=== PATIENT | female | born 1995 | race Caucasian/White ===

== ENCOUNTER 2021-09-05 03:40 | Emergency (ER) | payer OTHER ==
[~2021-09-05] VITALS: Ht 154.9 cm; Wt 65.8 kg
--- NOTE | 2021-09-05 03:46 | NUR ---
JOSE BRADLEY BLS TO ER BED 11 VIA [facility].
[2021-09-05 03:48] VITALS: BP 125/78
--- NOTE | 2021-09-05 04:08 | NUR ---
PT'S ARRIVED TEARY, TACHYPNEIC, AND VERY EMOTIONAL. PT'S REFUSED TO SEE FAMILY OUTSIDE WAITING IN THE WAITING AREA. PT PLACED ON MONITOR, VSS. BED LOCK AND LOW, SIDE RAILS UP, CALL LIGHT WITHIN REACH. ASPIRATION PRECAUTIONS OBSERVED: HOB IS OVER 30 DEGREES AND SIDELYING POSITION. WILL CONTINUE TO MONITOR.
--- NOTE | 2021-09-05 04:20 | NUR ---
PT'S FATHER, JONATAN, AT BEDSIDE PER PT'S REQUEST.
[2021-09-05] MEDS: NACL 0.9% 1,000 ML IV ONE ×2 (04:21→04:26)
[2021-09-05] MEDS ORDERED: NACL 0.9% 1,000 ML IV ONE (04:25)
[2021-09-05 06:38] VITALS: BP 124/73
--- NOTE | 2021-09-05 06:39 | NUR ---
Patient discharged with v/s stable. Written and verbal after care instructions given and explained. Patient verbalized understanding. Ambulatory with steady gait. All questions addressed prior to discharge. Advised to follow up with PMD. A/OX4, VSS, AMBULATORY, UNLABORED BREATHING, AND CALM DEMEANOR.
--- NOTE | 2021-09-06 16:44 | NUR ---
LATE ENTRY. 0.9%NS FLUIDS DISCONTINUED AT 0638 ON 09/05/21.
== END 2021-09-05 06:39 | disposition home or self-care (01) ==
LOC: MED 03:40
DX: F10.129 Alcohol abuse with intoxication, unspecified (principal); F41.9 Anxiety disorder, unspecified; R11.10 Vomiting, unspecified
CPT/HCPCS: 36415; 96360; 96361; 99283; G0482; J7030